=== PATIENT | female | born 1955 | race Caucasian/White ===

== ENCOUNTER 2023-12-28 21:40 | Emergency (ER) | payer MEDICARE, OTHER ==
[2023-12-28 22:25] LABS: Basophils % (A) 0 %; Eosinophils % (A) 0 %; HCT 45.9 % (34.0-46.0); HGB 14.9 gm/dL (11.4-16.0); Lymphocytes # (A) 0.4 k/uL (1.0-4.8); Lymphocytes % (A) 5 %; MCH 26.5 pg (25.0-35.0); MCHC 32.4 g/dL (31.0-37.0); MCV 81.6 fL (80.0-100.0); Mean Platelet Volume 6.9; Monocytes # (A) 0.3 k/uL (0-1.0); Monocytes % (A) 5 %; Neutrophils # (A) 6.5 k/uL (1.3-7.7); Neutrophils % (A) 88 %; RBC 5.63 m/uL (3.80-5.40); RDW 14.9 % (11.5-15.5); WBC 7.3 k/uL (3.8-10.6)
[2023-12-28 22:35] LABS: ALT 89 U/L (4-34); African American GFR (CKD) >90 (>60 ml/min/1.73 sqM); Albumin 4.6 g/dL (3.5-5.0); Anion Gap 9 mmol/L; Blood Urea Nitrogen 17 mg/dL (7-17); Calcium 10.2 mg/dL (8.4-10.2); Carbon Dioxide 30 mmol/L (22-30); Chloride 93 mmol/L (98-107); Glucose 136 mg/dL (74-99); Lipase 266 U/L (23-300); Non-African American GFR(CKD) >90 (>60 ml/min/1.73 sqM); Sodium 132 mmol/L (137-145); Total Bilirubin 1.8 mg/dL (0.2-1.3); Total Protein 7.1 g/dL (6.3-8.2)
[2023-12-28] MEDS: SODIUM CHLORIDE 0.9% 1,000 ML IV ONE (22:35)
[2023-12-28] MEDS: MORPHINE SULFATE 4 MG/ML SYRINGE IVP STA (22:35)
[2023-12-28] MEDS: diphenhydrAMINE 50 MG/ML 1 ML VIAL IVP STA (22:36)
[2023-12-28] MEDS: METOCLOPRAMIDE 5 MG/ML 2 ML VIAL IVP STA (22:36)
[2023-12-28 22:39] LABS: Platelet Count 88 k/uL (150-450)
[2023-12-28 22:42] LABS: AST 94 U/L (14-36); Alkaline Phosphatase 141 U/L (38-126)
[2023-12-29 00:04] LABS: Amorphous Sediment,Urine Occasional /hpf; Appearance,Urine Clear (Clear); Bilirubin,Urine Negative (Negative); Blood,Urine Moderate (Negative); Color,Urine Colorless; Glucose,Urine (UA) Negative (Negative); Hyaline Casts,Urine 8 /lpf (0-2); Ketones,Urine Negative (Negative); Leukocyte Esterase,Urine Moderate (Negative); Mucus,Urine Rare /hpf; Nitrite,Urine Negative (Negative); PH, Urine 5.5 (5.0-8.0); Protein,Urine Negative (Negative); RBC,Urine 2 /hpf (0-5); Specific Gravity,Urine 1.007 (1.001-1.035); Squamous Epithelial Cell,Urine <1 /hpf (0-4); Urobilinogen,Urine <2.0 mg/dL (<2.0); WBC,Urine 10 /hpf (0-5)
--- NOTE | 2023-12-29 01:26 | US ---
EXAM: US Abdomen Limited, Gallbladder CLINICAL HISTORY: ITS.REASON US Reason: epigastic pain TECHNIQUE: Real-time ultrasound of the right upper quadrant with image documentation. COMPARISON: No previous studies. FINDINGS: Liver: The liver measures 14 cm. Large alertly of the liver contour. Fatty liver. Gallbladder: Gallbladder wall measures 0.3 cm in thickness per. There is cholelithiasis. Cholesterol polyps are noted within the gallbladder. Pericholecystic fluid is noted. Negative ultrasound graphic Nash sign. Common bile duct: Common bile duct measures 0.7 cm. No stones. No dilation. Pancreas: Pancreatic duct measures 0.3 cm. Right kidney: Unremarkable. No stones. No hydronephrosis. Right kidney measures 9.8 x 4.8 x 5 cm. IMPRESSION: 1. Equivocal study with respect to the gallbladder. There is cholelithiasis, there is minimal gallbladder wall thickening, and there is pericholecystic fluid. There is negative ultrasound graphic Nash sign. Clinical correlation is advised. 2. Dilatation of the common bile duct. Choledocholithiasis cannot be excluded. MRCP study should be considered for follow-up. 3. Nodular liver suggestive of cirrhosis. 4. Fatty liver.
--- NOTE | 2023-12-29 01:30 | CT ---
EXAM: CT Abdomen and Pelvis With Intravenous Contrast CLINICAL HISTORY: ITS.REASON CT Reason: abdominal pain TECHNIQUE: Axial computed tomography images of the abdomen and pelvis with intravenous contrast. CTDI is 22.3 mGy and DLP is 1065.9 mGy-cm. This CT exam was performed using one or more of the following dose reduction techniques: automated exposure control, adjustment of the mA and/or kV according to patient size, and/or use of iterative reconstruction technique. COMPARISON: No previous studies. FINDINGS: Lung bases: Minimal scarring and subsegmental atelectasis noted near the lung bases. Heart: Cardiomegaly. Mediastinum: Small hiatal hernia and distal esophagitis. ABDOMEN: Liver: Fatty liver. Gallbladder and bile ducts: Minimal pericholecystic fluid is noted seen on series 202 image 4. No ductal dilation. Pancreas: See below. Spleen: Complex cystic lesions of the spleen. Spleen enhances uniformly. Adrenals: The adrenal glands, the head, body, tail of the pancreas are unremarkable. Kidneys and ureters: Persistent lobation of the kidneys. Nonspecific stranding about the perinephric spaces. Simple renal cyst. Stomach and bowel: A few mildly prominent fluid-filled loops of small bowel are noted at the left lower quadrant. The possibility of low-grade or early small bowel obstruction cannot be excluded. Alternatively, findings could be a manifestation of enteritis. There is a nonspecific finding which requires clinical correlation. Small to moderate quantity of ingested material in the stomach. Moderate quantity of stool throughout the colon. Diverticulosis without diverticulitis. PELVIS: Appendix: No findings to suggest acute appendicitis. Bladder: Unremarkable. No mass. Reproductive: Unremarkable as visualized. ABDOMEN and PELVIS: Intraperitoneal space: Unremarkable. No free air. No significant fluid collection. Bones/joints: No acute fracture. No dislocation. Soft tissues: Unremarkable. Vasculature: Portal vein is patent. Atherosclerotic disease of the abdominal aorta extending to the common iliac arteries, without aneurysmal dilatation. Flow is noted within the celiac, SMA, the renal arteries, and JL. Lymph nodes: Unremarkable. No retroperitoneal lymphadenopathy. IMPRESSION: 1. Hiatal hernia. 2. Fatty liver. 3. Splenomegaly. 4. Indeterminate splenic hypodensities. Correlation with ultrasonography of the left upper quadrant is advised. 5. Minimal pericholecystic fluid about the gallbladder which appears otherwise unremarkable. 6. Nonspecific stranding about the perinephric spaces without renal calculus or hydronephrosis. 7. A few mildly dilated fluid-filled loops of small bowel are noted at the left epigastrium Best seen on series 202 image 57. Low-grade or partial small bowel obstruction cannot be excluded although these findings could be on the basis of enteritis or could be fortuitous. Clinical correlation is therefore highly advised. 8. Diverticulosis without diverticulitis.
--- NOTE | 2023-12-29 02:26 | ED ---
Abdominal Pain HPI - General Chief Complaint: Abdominal Pain Stated Complaint: abd pain constipation nausea Time Seen by Provider: 12/28/23 21:47 Source: patient Mode of arrival: ambulatory Limitations: no limitations - History of Present Illness Initial Comments: 68-year-old female who presents to the emergency department reporting diffuse ab dominal pain. States that it started on but has gotten progressively worse. The pain is described as a pressure sensation. She has not been able to have a bowel movement. She normally goes daily. She admits to nausea without vomiting. No changes in her urination. No history of any abdominal surgeries. No history of similar pain. She denies any fevers. No other alleviating, preci pitating or modifying factors - Related Data Home Medications Medication Instructions Recorded Confirmed Levothyroxine Sodium [Tirosint] 50 mcg PO DAILY 09/01/15 09/01/15 hydroCHLOROthiazide [Hydrodiuril] 25 mg PO DAILY 09/01/15 09/01/15 Previous Rx's Medication Instructions Recorded Amoxicillin/Potassium Clav 1 tab PO Q12HR #20 tab 09/01/15 [Augmentin 875-125 Tablet] Tobramycin [Tobrex 0.3% Ophth Soln] 1 drop BOTH EYES Q4HR #5 ml 09/01/15 Triamcinolone 0.1% Paste [Oralone 1 applic MUCOUS MEM PC-BID #15 09/01/15 0.1% Paste] paste..g. Allergies Allergy/AdvReac Type Severity Reaction Status Date / Time No Known Allergies Allergy Verified 12/28/23 21:44 Review of Systems ROS Statement: Those systems with pertinent positive or pertinent negative responses have been documented in the HPI. ROS Other: All systems not noted in ROS Statement are negative. Past Medical History Past Medical History: Thyroid Disorder History of Any Multi-Drug Resistant Organisms: None Reported Past Surgical History: Tonsillectomy Past Psychological History: No Psychological Hx Reported Smoking Status: Never smoker Past Alcohol Use History: None Reported Past Drug Use History: None Reported General Exam Limitations: no limitations General appearance: alert, in no apparent distress Head exam: Present: atraumatic, normocephalic, normal inspection Eye exam: Present: normal appearance, PERRL, EOMI. Absent: scleral icterus, conjunctival injection, periorbital swelling ENT exam: Present: normal exam, mucous membranes moist Neck exam: Present: normal inspection. Absent: tenderness, meningismus, lymphadenopathy Respiratory exam: Present: normal lung sounds bilaterally. Absent: respiratory distress, wheezes, rales, rhonchi, stridor Cardiovascular Exam: Present: regular rate, normal rhythm, normal heart sounds. Absent: systolic murmur, diastolic murmur, rubs, gallop, clicks GI/Abdominal exam: Present: soft, tenderness (Generalized), normal bowel sounds. Absent: distended, guarding, rebound, rigid Extremities exam: Present: normal inspection, full ROM, normal capillary refill. Absent: tenderness, pedal edema, joint swelling, calf tenderness Back exam: Present: normal inspection Neurological exam: Present: alert, oriented X3, CN II-XII intact Psychiatric exam: Present: normal affect, normal mood Skin exam: Present: warm, dry, intact, normal color. Absent: rash Course Vital Signs 12/28/23 12/28/23 12/29/23 21:41 23:48 00:56 Temperature 98.3 F Pulse Rate 94 85 Respiratory 18 16 16 Rate Blood Pressure 157/90 129/70 112/72 O2 Sat by Pulse 97 100 97 Oximetry 12/29/23 12/29/23 03:07 04:29 Temperature Pulse Rate 83 73 Respiratory 16 16 Rate Blood Pressure 121/74 105/72 O2 Sat by Pulse 95 97 Oximetry Medical Decision Making - Medical Decision Making Was pt. sent in by a medical professional or institution (, PA, CONFERENCE SERVICE COORDINATOR, urgent care, hospital, or intermediate...) When possible be specific @ -No Did you speak to anyone other than the patient for history (EMS, parent, family, police, friend...)? What history was obtained from this source @ -No Did you review nursing and triage notes (agree or disagree)? Why? @ -I reviewed and agree with nursing and triage notes Were old charts reviewed (outside hosp., previous admission, EMS record, old EKG, old radiological studies, urgent care reports/EKG's, intermediate records)? Report findings @ -No old charts were reviewed Differential Diagnosis (chest pain, altered mental status, abdominal pain women, abdominal pain men, vaginal bleeding, weakness, fever, dyspnea, syncope, headache, dizziness, GI bleed, back pain, seizure, CVA, palpatations, mental health, musculoskeletal)? @ -Differential Abdominal Pain Women: Appendicitis, Cholecystitis, diverticulosis, ischemic bowel, pancreatitis, hepatitis, UTI, gastroenteritis, AAA, incarcerated hernia, bowel obstruction, constipation, inflammatory bowel, hepatitis, peptic ulcer disease, splenic infarction, perforated viscus, vulvitis, ovarian torsion, PID, kidney stone, olu centa abruption, this is not meant to be an all-inclusive list EKG interpreted by me (3pts min.). @ -Yes and demonstrates sinus rhythm with a rate of 95. [place] interval 168. QRS 89. QTc of 402. No acute ST segment elevations. X-rays interpreted by me (1pt min.). @ -None done CT interpreted by me (1pt min.). @ -Yes and demonstrates pericholecystic fluid. U/S interpreted by me (1pt. min.). @ -Yes and demonstrates some gallbladder wall thickening. There is cholelithiasis. There is dilation of the common bile duct What testing was considered but not performed or refused? (CT, X-rays, U/S, labs)? Why? @ -MRCP is considered however not available at this time What meds were considered but not given or refused? Why? @ -None Did you discuss the management of the patient with other professionals (professionals i.e. , PA, CONFERENCE SERVICE COORDINATOR, lab, RT, psych nurse, health care social worker, computer aided design designer, teacher, business banking officer, complex case manager)? Give summary @ -I spoke with the GI doctor at [facility], Dr. Ling Was smoking cessation discussed for >3mins.? @ -No Was critical care preformed (if so, how long)? @ -No Were there social determinants of health that impacted care today? How? (Homelessness, low income, unemployed, alcoholism, drug addiction, transportation, low edu. Level, literacy, decrease access to med. care, intermediate, rehab)? @ -No Was there de-escalation of care discussed even if they declined (Discuss DNR or withdrawal of care, Hospice)? DNR status @ -No What co-morbidities impacted this encounter? (DM, HTN, Smoking, COPD, CAD, Cancer, CVA, ARF, Chemo, Hep., AIDS, mental health diagnosis, sleep apnea, morbid obesity)? @ -None Was patient admitted / discharged? Hospital course, mention meds given and route, prescriptions, significant lab abnormalities, going to OR and other pertinent info. @ -Upon arrival patient seen and evaluated in room 22. Thorough history and physical exam was performed. IV access was established. Patient was given 4 mg of morphine for pain. She was given Reglan and Benadryl for nausea. Laboratory studies are conducted. She does have some elevation in her liver enzymes. CT was performed which demonstrates Fred cholecystic fluid. There is also concern for ileus versus enteritis versus small bowel obstruction. I did discuss these with the patient. I did page the surgeon on-call Dr. Gil. Dr. Gil does not call back and therefore his colleague Dr. Lewis is paged who states that the patient needs to be transferred as we do not have GI services. I did call and speak with Dr. Ling at [facility] who does reluctantly accept. Patient will be transferred to the ER. Accepting ER physician is Dr. Lazo. COBRA forms are signed. Patient transferred in stable condition Undiagnosed new problem with uncertain prognosis? @ -No Drug Therapy requiring intensive monitoring for toxicity (Heparin, Nitro, Insulin, Cardizem)? @ -No Were any procedures done? @ -No Diagnosis/symptom? @ -Acute abdominal pain, possible acute cholecystitis, possible choledocholithiasis, acute cholelithiasis, transaminitis, possible ileus versus small bowel obstruction Acute, or Chronic, or Acute on Chronic? @ -Acute Uncomplicated (without systemic symptoms) or Complicated (systemic symptoms)? @ -Complicated Side effects of treatment? @ -No Exacerbation, Progression, or Severe Exacerbation? @ -No Poses a threat to life or bodily function? How? (Chest pain, [place], [place], pneumonia, PE, COPD, DKA, ARF, appy, cholecystitis, CVA, Diverticulitis, Homicidal, Suicidal, threat to staff... and all critical care pts) @ -No - Lab Data Result diagrams: 12/28/23 22:19 12/28/23 22:19 Lab Results 12/28/23 12/28/23 12/28/23 Range/Units 22:19 22:19 22:19 WBC 7.3 (3.8-10.6) k/uL RBC 5.63 H (3.80-5.40) m/uL Hgb 14.9 (11.4-16.0) gm/dL Hct 45.9 (34.0-46.0) % MCV 81.6 (80.0-100.0) fL MCH 26.5 (25.0-35.0) pg MCHC 32.4 (31.0-37.0) g/dL RDW 14.9 (11.5-15.5) % Plt Count 88 L (150-450) k/uL MPV 6.9 Neutrophils % 88 % Lymphocytes % 5 % Monocytes % 5 % Eosinophils % 0 % Basophils % 0 % Neutrophils # 6.5 (1.3-7.7) k/uL Lymphocytes # 0.4 L (1.0-4.8) k/uL Monocytes # 0.3 (0-1.0) k/uL Eosinophils # 0.0 (0-0.7) k/uL Basophils # 0.0 (0-0.2) k/uL Sodium 132 L (137-145) mmol/L Potassium 4.0 (3.5-5.1) mmol/L Chloride 93 L (98-107) mmol/L Carbon Dioxide 30 (22-30) mmol/L Anion Gap 9 mmol/L BUN 17 (7-17) mg/dL Creatinine 0.61 (0.52-1.04) mg/dL Est GFR (CKD-EPI)AfAm >90 (>60 ml/min/1.73 sqM) Est GFR (CKD-EPI)NonAf >90 (>60 ml/min/1.73 sqM) Glucose 136 H (74-99) mg/dL Plasma Lactic Acid Leander 1.3 (0.7-2.0) mmol/L Calcium 10.2 (8.4-10.2) mg/dL Total Bilirubin 1.8 H (0.2-1.3) mg/dL AST 94 H (14-36) U/L ALT 89 H (4-34) U/L Alkaline Phosphatase 141 H (38-126) U/L Total Protein 7.1 (6.3-8.2) g/dL Albumin 4.6 (3.5-5.0) g/dL Lipase 266 (23-300) U/L Urine Color Urine Appearance (Clear) Urine pH (5.0-8.0) Ur Specific [place] (1.001-1.035) Urine Protein (Negative) Urine Glucose (UA) (Negative) Urine Ketones (Negative) Urine Blood (Negative) Urine Nitrite (Negative) Urine Bilirubin (Negative) Urine Urobilinogen (<2.0) mg/dL Ur Leukocyte Esterase (Negative) Urine RBC (0-5) /hpf Urine WBC (0-5) /hpf Ur Squamous Epith Cells (0-4) /hpf Amorphous Sediment (None) /hpf Hyaline Casts (0-2) /lpf Urine Mucus (None) /hpf 12/28/23 Range/Units 23:45 WBC (3.8-10.6) k/uL RBC (3.80-5.40) m/uL Hgb (11.4-16.0) gm/dL Hct (34.0-46.0) % MCV (80.0-100.0) fL MCH (25.0-35.0) pg MCHC (31.0-37.0) g/dL RDW (11.5-15.5) % Plt Count (150-450) k/uL MPV Neutrophils % % Lymphocytes % % Monocytes % % Eosinophils % % Basophils % % Neutrophils # (1.3-7.7) k/uL Lymphocytes # (1.0-4.8) k/uL Monocytes # (0-1.0) k/uL Eosinophils # (0-0.7) k/uL Basophils # (0-0.2) k/uL Sodium (137-145) mmol/L Potassium (3.5-5.1) mmol/L Chloride (98-107) mmol/L Carbon Dioxide (22-30) mmol/L Anion Gap mmol/L BUN (7-17) mg/dL Creatinine (0.52-1.04) mg/dL Est GFR (CKD-EPI)AfAm (>60 ml/min/1.73 sqM) Est GFR (CKD-EPI)NonAf (>60 ml/min/1.73 sqM) Glucose (74-99) mg/dL Plasma Lactic Acid Leander (0.7-2.0) mmol/L Calcium (8.4-10.2) mg/dL Total Bilirubin (0.2-1.3) mg/dL AST (14-36) U/L ALT (4-34) U/L Alkaline Phosphatase (38-126) U/L Total Protein (6.3-8.2) g/dL Albumin (3.5-5.0) g/dL Lipase (23-300) U/L Urine Color Colorless Urine Appearance Clear (Clear) Urine pH 5.5 (5.0-8.0) Ur Specific [place] 1.007 (1.001-1.035) Urine Protein Negative (Negative) Urine Glucose (UA) Negative (Negative) Urine Ketones Negative (Negative) Urine Blood Moderate H (Negative) Urine Nitrite Negative (Negative) Urine Bilirubin Negative (Negative) Urine Urobilinogen <2.0 (<2.0) mg/dL Ur Leukocyte Esterase Moderate H (Negative) Urine RBC 2 (0-5) /hpf Urine WBC 10 H (0-5) /hpf Ur Squamous Epith Cells <1 (0-4) /hpf Amorphous Sediment Occasional H (None) /hpf Hyaline Casts 8 H (0-2) /lpf Urine Mucus Rare H (None) /hpf Disposition Clinical Impression: Cholelithiasis, Abdominal pain, Ileus, Transaminitis, Acute cholecystitis Disposition: OTHER INSTITUTION NOT DEFINED Condition: Stable Is patient prescribed a controlled substance at d/c from ED?: No Referrals: None,Stated [Primary Care Provider] - 1-2 days Time of Disposition: 04:49 - Out of Hospital Transfer - Req. Specs Out of Hospital Transfer - Requested Specifics: Other Emergency Center ([facility]
[2023-12-29] MEDS: MORPHINE SULFATE 4 MG/ML SYRINGE IVP STA (03:31)
[2023-12-29] MEDS: ONDANSETRON 4 MG/2 ML VIAL IVP STA (03:31)
[2023-12-29] MEDS: PIPERACILLIN-TAZOBACTAM 3.375 GM in SODIUM CHLORIDE 0.9% 100 ML IVPB STA (05:00)
[2023-12-29 05:12] VITALS: RESP 18
[2023-12-29 05:46] VITALS: BP 107/63; PULSE 83; TEMP 97.8
== END 2023-12-29 05:45 | disposition other institution (70) ==
LOC: EC 21:40
CPT/HCPCS: 36415; 74177; 76705; 80053; 81001; 83605; 83690; 85025; 93005; 96361; 96365; 96375; 96376; 99285